=== PATIENT | female | born 2000 | race Caucasian/White ===

== ENCOUNTER 2021-08-18 11:43 | Emergency (ER) | payer OTHER ==
--- OUTSIDE RECORDS SUMMARY | 2021-08-18 11:47 | XMS REPORT | Continuity of Care Document ---
:2000 Author Organization [facility] Address [address] Perez [address] [place] [id number] Care Team Providers Name Role Phone Unavailable Unavailable Unavailable Problems This patient has no known problems. Allergies, Adverse Reactions, Alerts This patient has no known allergies or adverse reactions. Medications This patient has no known medications. Procedures This patient has no known procedures. Encounters Start End Encounter Admission Attending Care Care Encounter Source Date/Time Date/Time Type Type Clinicians Facility Department ID 2021-06-29 2021-06-29 [facility] [id number] 02:30:00 06:37:00 Department S Patient Visit 2021-05-19 2021-05-19 Outpatient [facility] [id number] [place] 00:00:00 00:00:[address] Results Test Description Test Time Test Comments Results Result [facility] e Comments CT [facility] 2021-06-29 W/O CONT 07:43:00 [facility] : 2000 Sex: F [facility] [place], [place] [id number] IMAGING REPORTPatient Name: Deneen DOUGLAS of Service: [id number]: 20 Sex: F Order #: [id number] Room: [facility]: 2000 X-Ray Number: [id number] Record Number: [id number] Hospital Number: [id number] Physician: Pam VALDEZ Physician: VEE SCHROEDER -CT facial bones.HISTORY: Injury.TECHNIQUE: Unenhanced CT images. This CT exam was performed using one ormore of the following dose reduction techniques: Automated exposurecontrol, adjustment of the MA and/or KV according to patient size or use ofiterative reconstruction technique.FINDINGS:No rmal. Clinical assessment is recommended.Electroni alexis Signed By: Cooper Cardoza M.D., 06/29/2021 7:40 AMLegally authenticated by DOMO Bull 2021-06-29 07:40:54
--- NOTE | 2021-08-18 12:42 | RAD REPORT ---
EXAM DESCRIPTION: RAD - Ankle Left 3 View -08/18/2021 12:34 pm CLINICAL HISTORY: Left ankle pain status post injury FINDINGS: No fracture or dislocation is seen. No significant bone or joint abnormality seen
--- NOTE | 2021-08-18 12:45 | ER ---
Nurse's Notes [facility] Name: Geetha Moy Age: 20 yrs Sex: Female : 2000 Arrival Date: 08/18/2021 Time: 11:46 Bed 12 Private MD: Diagnosis: Sprain of ankle Presentation: 08/18 12:12 Chief complaint: Patient states: I rolled my left ankle two days ago at work, I heard a ld1 loud pop and now I can not bear weight on my foot. Coronavirus screen: At this time, the client does not indicate any symptoms associated with coronavirus-19. Ebola Screen: No symptoms or risks identified at this time. Initial Sepsis Screen: Does the patient meet any 2 criteria? No. Patient's initial sepsis screen is negative. Does the patient have a suspected source of infection? No. Patient's initial sepsis screen is negative. Risk Assessment: Do you want to hurt yourself or someone else? Patient reports no desire to harm self or others. Onset of symptoms was August 18, 2021. 12:12 Method Of Arrival: Wheelchair ld1 12:12 Acuity: MELCHOR 4 ld1 Triage Assessment: 12:14 General: Appears in no apparent distress. comfortable, Behavior is calm, cooperative, ld1 appropriate for age. Pain: Complains of pain in left lateral ankle. Respiratory: Airway is patent Respiratory effort is even, unlabored, Respiratory pattern is regular, symmetrical. Musculoskeletal: Reports pain in left lateral ankle. 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 - Social history:: Smoking status: Patient denies any tobacco usage or history of. Patient/guardian denies using alcohol, street drugs. Screenin:27 Abuse screen: Denies threats or abuse. Denies injuries from another. Nutritional gonzalez screening: No deficits noted. Tuberculosis screening: No symptoms or risk factors identified. Fall Risk None identified. Assessment: 12:27 General: Appears in no apparent distress. Behavior is calm, cooperative. Pain: gonzalez Complains of pain in left foot Pain began gradually, 2-3 days ago. Musculoskeletal: Reports pain in left foot Pain is 10 out of 10 on a pain scale. Vital Signs: 12:12 BP 140 / 90; Pulse 92; Resp 18; Temp 98.6(O); Pulse Ox 99% on R/A; Weight 145.15 kg; ld1 Height 5 ft. 5 in. (165.10 cm); Pain 7/10; 12:12 Body Mass Index 53.25 (145.15 kg, 165.10 cm) ld1 ED Course: 11:46 Patient arrived in ED. ds1 12:12 Nesha Francisco FNP-C [facility]. kb 12:12 Joseph Reza MD is Attending Physician. kb 12:14 Triage completed. ld1 12:14 Arm band placed on right wrist. ld1 12:28 No provider procedures requiring assistance completed. gonzalez 12:29 Patient has correct armband on for positive identification. gonzalez 12:34 Ankle Left 3 View XRAY In Process Unspecified. EDMS 12:50 Patient did not have IV access during this emergency room visit. gonzalez Administered Medications: No medications were administered Outcome: 12:44 Discharge ordered by . kb 12:50 Discharged to home gonzalez 12:50 Condition: good 12:50 Discharge instructions given to patient. 12:51 Patient left the ED. gonzalez Signatures: Dispatcher [employer] EDNC Nesha Francisco FNP-C FNP-Ckb [place], Demi ds1 Odalis Jacome RN RN 1 Kenna Alvarez RN RN gonzalez
--- NOTE | 2021-08-18 12:45 | EDPHYS ---
Physician Documentation [facility] Name: Geetha Moy Age: 20 yrs Sex: Female : 2000 Arrival Date: 08/18/2021 Time: 11:46 Bed 12 Private MD: ED Physician Joseph Reza HPI: 08/18 12:35 This 20 yrs old Female presents to ER via Wheelchair with complaints of Ankle Injury. kb 12:35 The patient presents with pain, swelling, tenderness. The complaints affect the left kb ankle. Onset: The symptoms/episode began/occurred 2 day(s) ago. Context: The problem was sustained at home, resulted from twisted, The patient is unable to bear weight. can ambulate using crutches. Associated signs and symptoms: Pertinent positives: swelling, Pertinent negatives: calf tenderness, fever, nausea, numbness, rash, tingling, vomiting, warmth, weakness. Modifying factors: The symptoms are alleviated by nothing, the symptoms are aggravated by weight bearing. Severity of symptoms: At their worst the symptoms were moderate, in the emergency department the symptoms are unchanged. The patient has not experienced similar symptoms in the past. The patient has not recently seen a physician. Pt reports she rolled her left ankle 2 days ago. c/o pain and swelling to left ankle and unable to bear weight. 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 - Social history:: Smoking status: Patient denies any tobacco usage or history of. Patient/guardian denies using alcohol, street drugs. ROS: 12:35 Constitutional: Negative for fever, chills, and weight loss. kb 12:35 MS/extremity: Positive for pain, swelling, tenderness, of the left lateral ankle. 12:35 All other systems are negative. Exam: 12:35 Constitutional: This is a well developed, well nourished patient who is awake, alert, kb and in no acute distress. Head/Face: Normocephalic, atraumatic. ENT: Moist Mucous membranes Respiratory: Respirations even and unlabored. No increased work of breathing. Talking in full sentences Skin: Warm, dry with normal turgor. Normal color. Neuro: Awake and alert, GCS 15, oriented to person, place, time, and situation. Moves all extremities. Normal gait. Psych: Awake, alert, with orientation to person, place and time. Behavior, mood, and affect are within normal limits. 12:35 Musculoskeletal/extremity: Extremities: grossly normal except: noted in the left lateral ankle: pain, swelling, tenderness, ROM: intact in all extremities, Circulation is intact in all extremities. Sensation intact. Weight bearing: can bear weight with assistance only, uses crutches. Vital Signs: 12:12 BP 140 / 90; Pulse 92; Resp 18; Temp 98.6(O); Pulse Ox 99% on R/A; Weight 145.15 kg; ld1 Height 5 ft. 5 in. (165.10 cm); Pain 7/10; 12:12 Body Mass Index 53.25 (145.15 kg, 165.10 cm) ld1 MDM: 12:13 Patient medically screened. kb 12:41 Data reviewed: vital signs, nurses notes. Data interpreted: Pulse oximetry: on room air kb is 99 %. Interpretation: normal. 12:44 Counseling: I had a detailed discussion with the patient and/or guardian regarding: the kb historical points, exam findings, and any diagnostic results supporting the discharge/admit diagnosis, radiology results, the need for outpatient follow up, a orthopedic surgeon, to return to the emergency department if symptoms worsen or persist or if there are any questions or concerns that arise at home. 08/18 12:14 Order name: Ankle Left 3 View XRAY; Complete Time: 12:44 kb Administered Medications: No medications were administered Disposition: 15:37 Co-signature as Attending Physician, Joseph Reza MD I agree with the assessment and rn plan of care. Attestation: The patient's history, exam findings, diagnostics, and a summary of any interventions or procedures was reviewed in detail with Nesha CHAVEZ. Disposition Summary: 08/18/21 12:44 Discharge Ordered Location: Home kb Condition: Stable kb Diagnosis - Sprain of ankle kb Followup: kb - With: Emergency Department - When: As needed - Reason: Worsening of condition Followup: kb - With: Private Physician - When: 2 - 3 days - Reason: Recheck today's complaints, Continuance of care, Re-evaluation by your physician Discharge Instructions: - Discharge Summary Sheet kb - Ankle Sprain, [id number] kb Forms: - Medication Reconciliation Form kb - Thank You Letter kb - Antibiotic Education kb - Prescription Opioid Use kb Prescriptions: - Diclofenac Sodium 75 mg Oral tablet,delayed release (DR/EC) - take 1 tablet by ORAL route 2 times per day As needed; 30 tablet; Refills: 0, kb Product Selection Permitted Signatures: Dispatcher [employer] EDMS Nesha Francisco, LILLIANA-C FLANGING MACHINE OPERATOR-Joseph Dubois MD MD rn Odalis Jacome RN RN ld1
[2021-08-18 12:57] VITALS: BP 140/90; TEMP 98.6; O2SAT 99
== END 2021-08-18 12:51 | disposition home or self-care (01) ==
LOC: ER 11:43
DX: S93.402A Sprain of unspecified ligament of left ankle, initial encounter (principal); X58.XXXA Exposure to other specified factors, initial encounter; F31.9 Bipolar disorder, unspecified; Z88.5 Allergy status to narcotic agent
CPT/HCPCS: 99283